=== PATIENT | female | born 1995 | race African-American/Black ===

== ENCOUNTER 2021-06-09 12:18 | Emergency (ER) | payer OTHER ==
[~2021-06-09] VITALS: Ht 152.4 cm; Wt 44.9 kg
[2021-06-09 12:28] VITALS: BP 90/49
[2021-06-09] MEDS ORDERED: ONDANSETRON 4 MG/2 ML VIAL IVP ONE ×2 (13:20→15:30)
[2021-06-09] MEDS ORDERED: NACL 0.9% 1,000 ML IV ONE ×2 (13:20→14:55)
[2021-06-09] MEDS ORDERED: KETOROLAC 15 MG/ML VIAL IVP ONE (13:20)
--- NOTE | 2021-06-09 13:20 | NUR ---
Dr. Osullivan is evaluating pt at bedside
--- NOTE | 2021-06-09 13:25 | NUR ---
Pt ambulated to bed 08 with steady/even gait. UA collected.
--- NOTE | 2021-06-09 13:35 | NUR ---
25 y/o F BIB self from home c/o N/V/D and generalized abdominal pain x 1 day. Patient A&Ox4, ambulatory, reports 2-3 days ago onset of symptoms that worsened upon waking up this morning. pt reports eating a salad, [employer] fries and nuggets and orange prior to symptoms onset. Pt state generalized abdominal pain 7/10, aching/intermitten, non-radiating pain. Patient states vomiting > 10 episodes and diarrhea last BM today "watery/liquid." Denies hemaemesis. Skin pink/warm/dry. Abdomen soft/round/tender. UA collected. Bed locked in lowest position, side rails x 1. pmh: none meds: none nka lmp: 05/29/21 Addendum: 06/09/21 at 1358 by [facility] 25 y/o F BIB self from home c/o N/V/D and generalized abdominal pain x 1 day. Patient A&Ox4, ambulatory, reports 2-3 days ago onset of symptoms that worsened upon waking up this morning. pt reports eating a salad, [employer] fries and nuggets and orange prior to symptoms onset. Pt state generalized abdominal pain 7/10, aching/intermittent, non-radiating pain. Patient states vomiting > 10 episodes and diarrhea last BM today "watery/liquid." Denies hemaemesis. Skin pink/warm/dry. Abdomen soft/round/non-tender. UA collected. Bed locked in lowest position, side rails x 1. pmh: none meds: none nka lmp: 05/29/21
[2021-06-09 13:47] LABS: BASOPHILS # (AUTO) 0.1 K/uL (0.00-0.22); BASOPHILS % (AUTO) 0.4 % (0.0-2.0); EOSINOPHILS % (AUTO) 0.1 % (0.0-4.0); HEMATOCRIT 38.8 % (36-48); HEMOGLOBIN 12.8 g/dL (12.0-16.0); LYMPHOCYTES # (AUTO) 0.1 K/uL (2.5-16.5); LYMPHOCYTES % (AUTO) 0.8 % (20.5-51.1); MEAN CORPUSCULAR HEMOGLOBIN 29 pg (27-31); MEAN CORPUSCULAR HGB CONC 33 g/dL (33-37); MEAN CORPUSCULAR VOLUME 87.2 fL (80-94); MONOCYTES # (AUTO) 0.7 K/uL (0.8-1.0); MONOCYTES % (AUTO) 3.8 % (1.7-9.3); NEUTROPHILS # (AUTO) 16.9 K/uL (1.8-7.7); NEUTROPHILS % (AUTO) 94.9 % (42.2-75.2); PLATELET COUNT (AUTO) 242 K/uL (140-450); RED BLOOD CELL COUNT(AUTO) 4.45 MIL/uL (4.20-5.40); RED CELL DISTRIBUTION WIDTH 13.2 % (11.6-13.7); WHITE BLOOD COUNT (AUTO) 17.8 K/uL (4.8-10.8)
[2021-06-09 14:13] LABS: ALBUMIN 4.8 g/dL (3.4-5.0); ANION GAP 16.1 (8-16); CARBON DIOXIDE 26.6 mmol/L (21-32); CREATININE 0.8 mg/dL (0.6-1.3); POTASSIUM 3.7 mmol/L (3.5-5.1)
--- NOTE | 2021-06-09 14:15 | NUR ---
Pt + relief to nausea and pain. All pt needs met.
[2021-06-09] MEDS ORDERED: DICYCLOMINE 20 MG/2 ML VIAL IM ONE (14:55)
--- NOTE | 2021-06-09 15:10 | NUR ---
Dr. Osullivna is reevaulating pt at bedside
--- NOTE | 2021-06-09 15:15 | NUR ---
Pt reports slight nausea, denies pain 0/10 at this time.
[2021-06-09] MEDS ORDERED: ONDA-188 SL (15:17)
[2021-06-09] MEDS ORDERED: BEN10 PO (15:17)
--- NOTE | 2021-06-09 15:32 | NUR ---
PT PERFORMED PO CHALLENGE WITH GATORADE AT THIS TIME
[2021-06-09 15:45] VITALS: BP 113/63
--- NOTE | 2021-06-09 15:49 | NUR ---
Patient states she feels a lot better. Denies nausea after Zofran IVP. All pt needs met. VSS; respirations even/unlabored. Bed locked in lowest position, side rails x 1, call light in reach.
--- NOTE | 2021-06-09 15:55 | NUR ---
Patient discharged with v/s stable. Written and verbal after care instructions given and explained. Patient alert, oriented and verbalized understanding of instructions. Ambulatory with steady gait. All questions addressed prior to discharge. ID band removed. Patient advised to follow up with PMD. Rx of Rhonda Beard ODT given. Patient educated on indication of medication including possible reaction and side effects. Opportunity to ask questions provided and answered.
== END 2021-06-09 15:55 | disposition home or self-care (01) ==
LOC: MED 12:18
DX: R11.10 Vomiting, unspecified (principal); R19.7 Diarrhea, unspecified; R10.84 Generalized abdominal pain; F12.90 Cannabis use, unspecified, uncomplicated; Z79.899 Other long term (current) drug therapy; Z98.890 Other specified postprocedural states
CPT/HCPCS: 36415; 80053; 81002; 81025; 83690; 85025; 96361; 96372; 96374; 96375; 96376; 99284; J0500; J1885; J2405; J7030